=== PATIENT | male | born 1960 | race Caucasian/White ===

== ENCOUNTER 2017-02-21 15:44 | Emergency (ER) | payer MEDICARE, MEDICAID ==
[~2017-02-21] VITALS: Ht 162.6 cm; Wt 73.0 kg
[~2017-02-21 15:44] MED LIST: LACTULOSE
[2017-02-21 15:45] VITALS: BP 109/58
== END 2017-02-21 17:35 | disposition left against medical advice (07) ==
LOC: ER 15:45
DX: M25.522 Pain in left elbow (principal)

== ENCOUNTER 2017-02-21 18:42 | Emergency (ER) | payer MEDICARE, MEDICAID ==
[~2017-02-21] VITALS: Ht 180.3 cm; Wt 81.8 kg
[2017-02-21] MEDS ORDERED: CYCLOBENZAPRINE 10MG TABLET PO ONE (20:45)
[2017-02-21] MEDS ORDERED: KETOROLAC 60MG/2ML VIAL IM ONE (20:45)
[2017-02-21 22:21] VITALS: BP 124/69
== END 2017-02-21 22:32 | disposition home or self-care (01) ==
LOC: ER 20:42
DX: M62.830 Muscle spasm of back (principal); M25.571 Pain in right ankle and joints of right foot; M25.572 Pain in left ankle and joints of left foot; V49.9XXA Car occupant (driver) (passenger) injured in unspecified traffic accident, initial encounter; Y93.89 Activity, other specified; Y92.410 Unspecified street and highway as the place of occurrence of the external cause; Y99.8 Other external cause status
CPT/HCPCS: 96372; 99283; J1885

== ENCOUNTER 2018-12-20 10:39 | Emergency (ER) | payer MEDICARE, MEDICAID ==
[~2018-12-20] VITALS: Ht 180.3 cm; Wt 76.0 kg
[~2018-12-20 10:39] MED LIST changes: -LACTULOSE; +LACTULOSE PO
[2018-12-20 15:07] VITALS: BP 110/62
== END 2018-12-20 15:10 | disposition home or self-care (01) ==
LOC: ER 12:01
DX: R76.11 Nonspecific reaction to tuberculin skin test without active tuberculosis (principal); R93.89 Abnormal findings on diagnostic imaging of other specified body structures; K76.9 Liver disease, unspecified; F17.200 Nicotine dependence, unspecified, uncomplicated; Z90.49 Acquired absence of other specified parts of digestive tract
CPT/HCPCS: 71045; 99283